=== PATIENT | female | born 1975 | race Caucasian/White ===

== ENCOUNTER → 2016-12-05 | Day surgery (SDC) | payer BC ==
--- NOTE | 2016-12-01 17:29 | GHP ---
[f rep st] PREOP HISTORY AND PHYSICAL NAME OF PROCEDURE: Suction dilation and curettage. INDICATIONS: Patient is a 41-year-old, 2, para 0-0-1-0, who presented for a new OB visit on 11/25/2016. She is supposed to be 8 weeks by last menstrual period, and she was measuring size less than dates by 2 weeks. She had a repeat ultrasound done 6 days later, which showed size less than dates by 18 days with no cardiac activity with a crown-rump length of 6 weeks. There was also an enlarged yoke sac noted. A diagnosis of missed was made. Management options were reviewed with the patient. The patient elected to proceed with a suction dilation and curettage. Risks and benefits have been extensively reviewed with the patient. The patient has been properly consented. MEDICAL HISTORY: History of depression. MEDICATIONS: vitamins and Zoloft. SURGICAL HISTORY: Voluntary termination of . ALLERGIES: Sulfa. SOCIAL HISTORY: Patient is . 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 She denies tobacco, alcohol, or drug use. FAMILY MEDICAL HISTORY: Noncontributory. LAW RESEARCHER HISTORY: Menarche age 16. Periods every 34 days lasting 3 days. She is a 2, para 0-0-1-0. In 2009 she had a voluntary termination of at 12 weeks. Current is a missed . Patient denies any history of any abnormal Pap smears or sexually transmitted diseases. PHYSICAL EXAM: VITAL SIGNS: Stable. GENERAL APPEARANCE: She is alert and oriented x3. HEART: Rate is regular. LUNGS: Clear to auscultation bilaterally. ABDOMEN: Soft, nondistended, nontender. EXTREMITIES: Reveal no calf tenderness or edema. PELVIC: Reveals a mobile, mid position uterus with no adnexal masses. IMAGING: Pelvic ultrasound shows an ultrasound with an intrauterine size less than dates by 18 days. [place]-rump length of 6 weeks with no cardiac activity, and an enlarged yolk sac. The patient's blood type is O positive. ASSESSMENT AND PLAN: A 41-year-old, 2, para 0-0-1-0, with a diagnosis of missed of a 1st trimester . The patient is electing to proceed with a suction dilation and curettage. Risks and benefits have been reviewed with the patient, and patient has been properly consented. /[id number]/MODL MTDD
[~2016-12-05] MED LIST: DOXYCYCLINE HYCLATE 100 MG CAP/TAB PO ONE; KETOROLAC 30 MG/1 ML SDV ONE; LIDOCAINE 2% 5 ML SDV ONE; LR 1,000 ML IV ONE; MIDAZOLAM 2 MG/2 ML VIAL ONE; ONDANSETRON 4 MG/2 ML VIAL ONE; PROPOFOL/EMULSION 500 MG/50 ML BOTTLE IV ONE; fentaNYL 100 MCG/2 ML INJ ONE
--- NOTE | 2016-12-05 14:31 | GOP ---
[f rep st] OPERATIVE REPORT DATE OF OPERATION: 12/05/2016 SURGEON: Corina Willoughby DO PREOPERATIVE DIAGNOSIS: Missed . POSTOPERATIVE DIAGNOSIS: Missed . PROCEDURE PERFORMED: Suction dilation and curettage. FINDINGS: 1. On exam under anesthesia, mobile midposition uterus with no adnexal masses. 2. Postoperative pelvic ultrasound: Thin endometrial stripe. SPECIMENS: Products of conception. ESTIMATED BLOOD LOSS: 10 cc. INDICATIONS: Patient is a 41-year-old 2, para 0-0-1-0, who presented for a new OB visit on 11/25/2016. She was supposed to be 8 weeks by last menstrual period, and was measuring size less th an dates by 2 weeks. She had a repeat ultrasound done 6 days later, which showed size less than eliot es by 18 days with no cardiac activity and a crown-rump length of 6 weeks. There was also an enlarg ed yolk sac. Diagnosis of missed was made. Management options were reviewed extensively w ith the patient. The patient elected to proceed with a suction dilation and curettage. Risks and b enefits of the procedure were reviewed extensively with the patient. The patient has elected to col lect Anora for genetic testing. DESCRIPTION OF PROCEDURE: Consent was then signed. Patient was given doxycycline preoperatively. She was then taken to the operating room, where she was placed on the operating room table in dorsal supine position, where general anesthesia was obtained. She was then repositioned to the dorsal li thotomy position with the [place] stirrups, and prepped and draped in the normal sterile fashion. Exam under anesthesia revealed a mobile midposition uterus with no adnexal masses. A speculum was t hen placed in the patient's vagina. An Allis clamp was used to grasp the anterior lip of the cervix , and the cervix was then carefully dilated to allow for the introduction of an 8 curved suction cur ette. A circumferential curettage was performed. A moderate amount of products of conception were noted. A sharp metal curette was performed circumferentially, gently, until a gritty texture was no davy. The suction curette was then reintroduced 1 additional time. No additional products of concep tion were noted. Instruments were then removed from the patient's vagina. A transvaginal ultrasoun d was placed, and a thin endometrial stripe was noted. The printer was not able to print images due to the printer being out of paper. The patient was then returned to the dorsal supine position, wh ere she was easily awoken from anesthesia. Sponge count was correct. The patient was transferred t o recovery room in stable condition. /[id number]/MODL
== END | disposition home or self-care (01) ==
LOC: FOBOP 08:41
PROVIDERS: ATTEND Obstetrics & Gynecology
PROC: 10D17ZZ Extraction of Products of Conception, Retained, Via Natural or Artificial Opening (ICD-10-PCS; principal; 2016-12-05)
DX: O02.1 Missed abortion (principal); Z3A.08 8 weeks gestation of pregnancy
CPT/HCPCS: J1885; J2250; J2405; J2704; J3010